=== PATIENT | female | born 1995 | race Caucasian/White ===

== ENCOUNTER → 2017-10-14 16:51 | Outpatient (CLI) | payer BC, SELFPAY ==
[2017-10-14 17:32] LABS: Basophils % 0.3 % (0.1-2.0); Eosinophils # 0.2 K/mm3 (0.0-0.4); Eosinophils % 1.9 % (0.1-12.0); Hematocrit 34.6 % (37.0-47.0); Hemoglobin 11.4 g/dL (12.2-16.2); Lymphocytes # 2.6 K/mm3 (0.7-4.5); Lymphocytes % 26.1 K/mm3 (10-50); Mean Corpuscular Hemoglobin 28.1 pg (27.0-31.2); Mean Corpuscular Volume 85.2 fl (81-99); Mean Platelet Volume 7.4 fl (7.4-10.4); Monocytes # 0.3 K/mm3 (0.1-1.0); Monocytes % 3.3 % (1.7-9.3); Neutrophils # 6.8 K/mm3 (1.8-7.8); Neutrophils % 68.3 % (37.0-80.0); Platelet Count 293 K/mm3 (142-424); Red Blood Count 4.06 M/mm3 (4.20-5.40); Red Cell Distribution Width 13.9 % (11.5-17.5); White Blood Count 9.9 K/mm3 (4.8-10.8)
[2017-10-14 19:21] LABS: Thyroid Stimulating Hormone 1.62 uIU/ml (0.358-3.740)
[2017-10-16 06:20] LABS: HIV Screen 4th Generation wRfx Non Reactive (Non Reactive)
[2017-10-17 17:13] LABS: Hepatitis B Surface Antigen Negative (Negative)
[2018-02-16 08:46] LABS: Results REPORT
[2018-02-16 08:47] LABS: Gestat. Age Based On EDD
[2018-02-16 08:48] LABS: Gest. Age on Collection Date 18.7; Maternal Age At EDD 22.3
[2018-02-16 08:51] LABS: DIA MoM 1.13; DIA Value 191.73; OSBR Risk 1 IN 2212; uE3 MoM 1.56
[2018-02-16 08:59] LABS: AFP Value 69.7
[2018-02-16 09:00] LABS: uE3 Value 2.31
[2018-02-16 09:01] LABS: DSR (Second Trimester) 1 IN 10000
[2018-02-16 09:28] LABS: hCG Value 21640
== END ==
PROVIDERS: PCP Obstetrics & Gynecology; Visit Provider Obstetrics & Gynecology
DX: Z34.90 Encounter for supervision of normal pregnancy, unspecified, unspecified trimester (principal)
CPT/HCPCS: 84443; 85025; 86703; 86762; 86850; 87340; G0432

== ENCOUNTER → 2017-12-05 13:37 | Outpatient (CLI) | payer BC, SELFPAY ==
[2017-12-05 15:22] LABS: Glucose 1 Hour 127 mg/dL (74-106)
== END ==
PROVIDERS: Visit Provider Obstetrics & Gynecology
DX: Z34.90 Encounter for supervision of normal pregnancy, unspecified, unspecified trimester (principal)
CPT/HCPCS: 36415; 82951

== ENCOUNTER → 2018-01-08 15:58 | Outpatient (CLI) | payer BC, SELFPAY ==
[2018-01-08 16:15] LABS: Strep Scrn Group A (Rapid) Negative (Negative)
== END ==
PROVIDERS: PCP Obstetrics & Gynecology; Visit Provider Obstetrics & Gynecology
DX: J02.0 Streptococcal pharyngitis (principal)
CPT/HCPCS: 87430

== ENCOUNTER → 2018-01-27 17:00 | Outpatient (REF) | payer BC, SELFPAY | LOC: LAB 17:00 | PROVIDERS: Visit Provider Obstetrics & Gynecology | DX: Z34.90 Encounter for supervision of normal pregnancy, unspecified, unspecified trimester (principal) | CPT/HCPCS: 86403 ==

== ENCOUNTER 2018-03-09 04:45 | Inpatient (IN) ==
[2018-03-09 05:37] LABS: Basophils % 0.3 % (0.1-2.0); Eosinophils # 0.1 K/mm3 (0.0-0.4); Eosinophils % 1.3 % (0.1-12.0); Hematocrit 30.3 % (37.0-47.0); Hemoglobin 9.3 g/dL (12.2-16.2); Lymphocytes # 3.3 K/mm3 (0.7-4.5); Lymphocytes % 29.4 K/mm3 (10-50); Mean Corpuscular HGB Conc 30.8 g/dL (31.8-35.4); Mean Corpuscular Hemoglobin 25.3 pg (27.0-31.2); Mean Corpuscular Volume 82.2 fl (81-99); Monocytes # 0.4 K/mm3 (0.1-1.0); Monocytes % 3.8 % (1.7-9.3); Neutrophils # 7.2 K/mm3 (1.8-7.8); Neutrophils % 65.2 % (37.0-80.0); Platelet Count 228 K/mm3 (142-424); Red Blood Count 3.69 M/mm3 (4.20-5.40); Red Cell Distribution Width 13.5 % (11.5-17.5); White Blood Count 11.1 K/mm3 (4.8-10.8)
--- NOTE | 2018-03-09 06:02 | Progress Note ---
Internal Medicine - PN: Subj *Date: 03/09/18 *Time: 06:00 Interval history: This 22-year-old 2, para 1, Ab0 white female is admitted at 39-4/7 weeks with irregular contractions at 2 cm of dilatation. She is being augmented with intravenous Pitocin, and plans an epidural. Vaginal delivery is anticipated. Her hemoglobin is 9.3 g, but she is clinically stable. Exam Vital signs and Labs for Last 24 Hours: Laboratory Results - last 24 hr 03/09/18 05:25: WBC 11.1 H, RBC 3.69 L, Hgb 9.3 L, Hct 30.3 L, MCV 82.2, MCH 25.3 L, MCHC 30.8 L, RDW 13.5, Plt Count 228, MPV 9.0, Neut % (Auto) 65.2, Lymph % (Auto) 29.4, [place] % (Auto) 3.8, Eos % (Auto) 1.3, Baso % (Auto) 0.3, Neut # (Auto) 7.2, Lymph # (Auto) 3.3, [place] # (Auto) 0.4, Eos # (Auto) 0.1, Baso # (Auto) 0.0 I & O for Last 24 hours: Intake & Output 03/06/18 03/07/18 03/08/18 03/09/18 11:59 11:59 11:59 11:59 Weight 202 lb
--- NOTE | 2018-03-09 07:15 | Progress Note ---
Internal Medicine - PN: Subj *Date: 03/09/18 *Time: 07:15 Interval history: Cervix is now completely effaced, 3-4 cm, with presenting vertex at -2 station. Amniotomy reveals clear fluid, and an internal monitor has been placed. She continues on IV Pitocin, and may have an epidural as requested. Exam Vital signs and Labs for Last 24 Hours: Temp Pulse Resp BP 98.0 F 86 18 133/86 03/09/18 06:12 03/09/18 06:12 03/09/18 06:12 03/09/18 06:12 Laboratory Results - last 24 hr 03/09/18 05:25: Blood Type O Positive, Antibody Screen Negative 03/09/18 05:25: WBC 11.1 H, RBC 3.69 L, Hgb 9.3 L, Hct 30.3 L, MCV 82.2, MCH 25.3 L, MCHC 30.8 L, RDW 13.5, Plt Count 228, MPV 9.0, Neut % (Auto) 65.2, Lymph % (Auto) 29.4, [place] % (Auto) 3.8, Eos % (Auto) 1.3, Baso % (Auto) 0.3, Neut # (Auto) 7.2, Lymph # (Auto) 3.3, [place] # (Auto) 0.4, Eos # (Auto) 0.1, Baso # (Auto) 0.0 I & O for Last 24 hours: Intake & Output 03/06/18 03/07/18 03/08/18 03/09/18 11:59 11:59 11:59 11:59 Weight 202 lb
--- NOTE | 2018-03-09 08:30 | Progress Note ---
Internal Medicine - PN: Subj *Date: 03/09/18 *Time: 08:29 Interval history: Epidural is now in situ. Cervix is 5 cm, completely effaced, -2. Continues on IV Pitocin. Exam Vital signs and Labs for Last 24 Hours: Temp Pulse Resp BP 98.0 F 86 18 133/86 03/09/18 06:12 03/09/18 06:12 03/09/18 06:12 03/09/18 06:12 Laboratory Results - last 24 hr 03/09/18 05:25: Blood Type O Positive, Antibody Screen Negative 03/09/18 05:25: WBC 11.1 H, RBC 3.69 L, Hgb 9.3 L, Hct 30.3 L, MCV 82.2, MCH 25.3 L, MCHC 30.8 L, RDW 13.5, Plt Count 228, MPV 9.0, Neut % (Auto) 65.2, Lymph % (Auto) 29.4, [place] % (Auto) 3.8, Eos % (Auto) 1.3, Baso % (Auto) 0.3, Neut # (Auto) 7.2, Lymph # (Auto) 3.3, [place] # (Auto) 0.4, Eos # (Auto) 0.1, Baso # (Auto) 0.0 I & O for Last 24 hours: Intake & Output 03/06/18 03/07/18 03/08/18 03/09/18 11:59 11:59 11:59 11:59 Weight 202 lb
--- NOTE | 2018-03-09 09:47 | Progress Note ---
Internal Medicine - PN: Subj *Date: 03/09/18 *Time: 09:47 Interval history: Doing well. Cervix no completely effaced, 6 cm, -1 station. Exam Vital signs and Labs for Last 24 Hours: Temp Pulse Resp BP 98.0 F 86 18 133/86 03/09/18 06:12 03/09/18 06:12 03/09/18 06:12 03/09/18 06:12 Laboratory Results - last 24 hr 03/09/18 05:25: Blood Type O Positive, Antibody Screen Negative 03/09/18 05:25: WBC 11.1 H, RBC 3.69 L, Hgb 9.3 L, Hct 30.3 L, MCV 82.2, MCH 25.3 L, MCHC 30.8 L, RDW 13.5, Plt Count 228, MPV 9.0, Neut % (Auto) 65.2, Lymph % (Auto) 29.4, [place] % (Auto) 3.8, Eos % (Auto) 1.3, Baso % (Auto) 0.3, Neut # (Auto) 7.2, Lymph # (Auto) 3.3, [place] # (Auto) 0.4, Eos # (Auto) 0.1, Baso # (Auto) 0.0 I & O for Last 24 hours: Intake & Output 03/06/18 03/07/18 03/08/18 03/09/18 11:59 11:59 11:59 11:59 Weight 202 lb
--- NOTE | 2018-03-09 10:16 | Progress Note ---
[facility] Anesthesia Checklist - Structural Data Admitted From: Home Planned Operative Procedure/s: labor epidural Consent for Planned Operative Procedure(s) Verified: Yes - Airway Assessment C-Spine Mobility Assessed: Yes TMJ Mobility Assessed: Yes Dentition: Good Dentition - Neurological Assessment Level of Consciousness: Awake, Alert, Appropriate - Anesthesia Plan Anesthesia Risk discussed: Yes Anesthesia Plan: Verified ASA Class: II Anesthesia Type: Epidural [facility] Anesthesia HX I have reviewed the patient's past medical history: Yes Medical History: Denies:: Diabetes Mellitus Type 1, Diabetes Mellitus Type 2 Other Surgeries: No: Amputation: No Fractures: No *Family Hx:: No significant family history
--- NOTE | 2018-03-09 11:48 | Progress Note ---
Internal Medicine - PN: Subj *Date: 03/09/18 *Time: 11:47 Interval history: The patient is doing well. Cervix is now completely effaced, 8 cm, 0 station. Exam Vital signs and Labs for Last 24 Hours: Temp Pulse Resp BP 98.0 F 86 18 133/86 03/09/18 06:12 03/09/18 06:12 03/09/18 06:12 03/09/18 06:12 Laboratory Results - last 24 hr 03/09/18 05:25: Blood Type O Positive, Antibody Screen Negative 03/09/18 05:25: WBC 11.1 H, RBC 3.69 L, Hgb 9.3 L, Hct 30.3 L, MCV 82.2, MCH 25.3 L, MCHC 30.8 L, RDW 13.5, Plt Count 228, MPV 9.0, Neut % (Auto) 65.2, Lymph % (Auto) 29.4, [place] % (Auto) 3.8, Eos % (Auto) 1.3, Baso % (Auto) 0.3, Neut # (Auto) 7.2, Lymph # (Auto) 3.3, [place] # (Auto) 0.4, Eos # (Auto) 0.1, Baso # (Auto) 0.0 I & O for Last 24 hours: Intake & Output 03/06/18 03/07/18 03/08/18 03/09/18 11:59 11:59 11:59 11:59 Weight 202 lb
--- NOTE | 2018-03-09 12:47 | Progress Note ---
Internal Medicine - PN: Subj *Date: 03/09/18 *Time: 12:47 Interval history: Patient doing well. Cervix now complete, complete, +1 station. Exam Vital signs and Labs for Last 24 Hours: Temp Pulse Resp BP 98.0 F 86 18 133/86 03/09/18 06:12 03/09/18 06:12 03/09/18 06:12 03/09/18 06:12 Laboratory Results - last 24 hr 03/09/18 05:25: Blood Type O Positive, Antibody Screen Negative 03/09/18 05:25: WBC 11.1 H, RBC 3.69 L, Hgb 9.3 L, Hct 30.3 L, MCV 82.2, MCH 25.3 L, MCHC 30.8 L, RDW 13.5, Plt Count 228, MPV 9.0, Neut % (Auto) 65.2, Lymph % (Auto) 29.4, [place] % (Auto) 3.8, Eos % (Auto) 1.3, Baso % (Auto) 0.3, Neut # (Auto) 7.2, Lymph # (Auto) 3.3, [place] # (Auto) 0.4, Eos # (Auto) 0.1, Baso # (Auto) 0.0 I & O for Last 24 hours: Intake & Output 03/07/18 03/08/18 03/09/18 03/10/18 11:59 11:59 11:59 11:59 Weight 202 lb
--- NOTE | 2018-03-09 13:31 | Procedure Note ---
- Delivery Note Delivery Date:: 03/09/18 Delivery Time:: 13:13 Anesthesia Type: Epidural Was labor medically induced?: Yes Induction method: per pitocin protocol Gestational age (weeks): 39 delivered prior to 39 weeks?: No Gender: Male at 1 minute: 7 at 5 minutes: 9 AF:: Clear LAC or MLE?: LAC (Second-degree) Delivery Procedure:: This 22-year-old 2, now para 2, Ab0 white female was admitted at 39 4/7 weeks with irregular contractions at 3 cm of dilatation. She was augmented with intravenous Pitocin, and an amniotomy revealed clear fluid. An internal monitor was placed, and the patient labored under a labor epidural, which worked well. She went steadily to completion and delivered spontaneously, without an episiotomy. There was a loose nuchal cord 1, which was easily reduced. The baby's nasal and oropharynx were bulb suctioned, and the baby cried spontaneously on the perineum, as was delivered. The cord was clamped and cut, 3 vessels were noted to be within the cord and cord blood was obtained. The cord pH is pending at this time. The baby was handed to the arms of the attending RN, who assigned Apgars of 7 at 1 minute and 9 at 5 minutes to this 9 lbs. 9 oz., 21 inch male infant, born at 1313. The baby was recovery in excellent condition. The placenta delivered spontaneously, intact, at 1315, making the total time in labor 8 hours 15 minutes. The uterus was inspected and was felt to be clean, and was involuting well, with IV Pitocin running. There was a second-degree midline laceration, which was closed in the usual fashion, in layers, with 2-0 Vicryl. At the close of the procedure, the vagina and rectovaginal septum were intact. The sponge and needle count was correct. This may loss was 350 cc. The patient tolerated procedure well, and was recovered in excellent condition. Her blood type is O+. Rubella titer is immune. She plans to breast-feed. Placental Delivery Description: Spontaneous
--- NOTE | 2018-03-09 15:01 | Progress Note ---
Internal Medicine - PN: Subj *Date: 03/09/18 *Time: 15:00 Interval history: I was called to see the patient roughly 2 hours because of what was described as "spurting of blood" from the vagina with fundal massage. The patient's fundus is involuting well. Exam reveals no evidence of active laceration. Cervix is closing. She has no specific complaints of pain. Small clots were noted in the vagina. The patient's hemoglobin was 9.3 g upon admission this morning. I will recheck her H&H at this time. Exam Vital signs and Labs for Last 24 Hours: Temp Pulse Resp BP 98.0 F 86 18 133/86 03/09/18 06:12 03/09/18 06:12 03/09/18 06:12 03/09/18 06:12 Laboratory Results - last 24 hr 03/09/18 05:25: Blood Type O Positive, Antibody Screen Negative 03/09/18 05:25: WBC 11.1 H, RBC 3.69 L, Hgb 9.3 L, Hct 30.3 L, MCV 82.2, MCH 25.3 L, MCHC 30.8 L, RDW 13.5, Plt Count 228, MPV 9.0, Neut % (Auto) 65.2, Lymph % (Auto) 29.4, [place] % (Auto) 3.8, Eos % (Auto) 1.3, Baso % (Auto) 0.3, Neut # (Auto) 7.2, Lymph # (Auto) 3.3, [place] # (Auto) 0.4, Eos # (Auto) 0.1, Baso # (Auto) 0.0 03/09/18 13:20: Cord ABG pH 7.40 I & O for Last 24 hours: Intake & Output 03/07/18 03/08/18 03/09/18 03/10/18 11:59 11:59 11:59 11:59 Weight 202 lb
[2018-03-09 16:06] LABS: Hematocrit 30.3 % (37.0-47.0); Hemoglobin 9.3 g/dL (12.2-16.2)
--- NOTE | 2018-03-10 06:15 | Progress Note ---
Internal Medicine - PN: Subj *Date: 03/10/18 *Time: 06:14 (This is day #1. The patient is afebrile. Vital signs stable. Abdomen soft. Lochia normal. Uterine fundus involuting well. Perineum healing well. Nursing well. Impression: Stable.) Exam Vital signs and Labs for Last 24 Hours: Temp Pulse Resp BP 98.0 F 94 H 18 125/70 03/10/18 04:00 03/10/18 04:00 03/10/18 04:00 03/10/18 04:00 Laboratory Results - last 24 hr 03/09/18 05:25: Blood Type O Positive, Antibody Screen Negative 03/09/18 13:20: Cord ABG pH 7.40 03/09/18 15:22: Hgb 9.3 L, Hct 30.3 L I & O for Last 24 hours: Intake & Output 03/07/18 03/08/18 03/09/18 03/10/18 11:59 11:59 11:59 11:59 Weight 202 lb
[2018-03-10 07:15] LABS: Hematocrit 27.5 % (37.0-47.0); Hemoglobin 8.6 g/dL (12.2-16.2)
[2018-03-10 20:29] VITALS: BP 124/56
--- NOTE | 2018-03-11 07:31 | Progress Note ---
Internal Medicine - PN: Subj *Date: 03/11/18 *Time: 07:30 (This is day #2. The patient is afebrile. Vitals are stable. Lochia normal. Perineum healing well. Uterine fundus is involuting well. She is nursing well. Her hemoglobin is 8.6 g, but she is clinically stable. She will be discharged today.) Exam Vital signs and Labs for Last 24 Hours: Temp Pulse Resp BP 97.5 F L 74 20 124/56 03/10/18 20:00 03/10/18 20:00 03/10/18 20:00 03/10/18 20:00 I & O for Last 24 hours: Intake & Output 03/08/18 03/09/18 03/10/18 03/11/18 11:59 11:59 11:59 11:59 Weight 202 lb
--- NOTE | 2018-03-11 07:34 | Discharge Summary ---
General - General Admission date:: 03/09/18 Hospital Course Hospital Course: This 22-year-old 2, now para 2, Ab0 white female was noted at with irregular contractions at 3 cm of dilatation. She was augmented with intravenous Pitocin, and labored under a labor epidural, which worked well. She went steadily to completion, and delivered spontaneously, without an episiotomy, at 1313 on 03/09/18. The baby was an 7/9, 9 lbs. 9 oz., 21 inch male , who is breast-feeding, has been circumcised, and is doing well. The patient sustained a second-degree perineal laceration, which was closed in the usual fashion. The patient's hemoglobin on admission was 9.3 g; it is 8.6 g, but she is clinically stable. She is eating and ambulating, and has had a bowel movement. She is not a smoker. She is discharged home on the second day on iron 3 times a day and vitamins once a day, and on Tylenol and Motrin, and if her pain. She is given appropriate instructions as to diet, exercise, and perineal care, and she is to return the office in 3 weeks for follow-up. Her blood type is O+. Rubella titer is immune. Objective Vital signs: Temp Pulse Resp BP 97.5 F L 74 20 124/56 03/10/18 20:00 03/10/18 20:00 03/10/18 20:00 03/10/18 20:00 Discharge Plan - Patient Discharge Instructions - Follow up Plan Home Medications: Home Medications Medication Instructions Recorded Confirmed Type docosahexanoic acid 200 mg capsule 200 mg PO BID 10/28/17 03/09/18 History Prescriptions/Medication Reconciliation: No Action docosahexanoic acid 200 mg capsule 200 mg PO BID
== END 2018-03-11 10:45 | disposition home or self-care (01) ==
LOC: OB 04:45
PROVIDERS: ADMIT Obstetrics & Gynecology; ATTEND Obstetrics & Gynecology